=== PATIENT | male | born 1970 | race Caucasian/White ===

== ENCOUNTER 2016-06-02 08:09 | Emergency (ER) | payer MEDICAID ==
[~2016-06-02] VITALS: Ht 167.6 cm; Wt 77.1 kg
--- NOTE | 2016-06-02 08:15 | NUR ---
Patient to bed 04.
[2016-06-02 08:17] VITALS: BP 134/94
--- NOTE | 2016-06-02 08:21 | NUR ---
DR. ASHBY EVALUATING PATIENT AT BEDSIDE.
--- NOTE | 2016-06-02 08:25 | NUR ---
45 yo MALE BIB SELF FOR RIGHT SIDED LOW BACK PAIN. AWAKE AND ALERT; DENIES N/V/D; SKIN IS PINK/WARM/DRY; AAOX4 WITH EVEN AND STEADY GAIT; LUNGS CLEAR BL; HR EVEN AND REGULAR; PT DENIES ANY FEVER, CP, SOB, OR COUGH AT THIS TIME; PATIENT STATES PAIN OF 8/10 AT THIS TIME; VSS; PATIENT POSITIONED FOR COMFORT; HOB ELEVATED; BEDRAILS UP X2; BED DOWN. ER MD MADE AWARE OF PT STATUS.
[2016-06-02 08:50] VITALS: BP 127/81
--- NOTE | 2016-06-02 08:50 | NUR ---
Patient discharged with v/s stable. Written and verbal after care instructions given and explained. Patient alert, oriented and verbalized understanding of instructions. Ambulatory with steady gait. All questions addressed prior to discharge. ID band removed. Patient advised to follow up with PMD. Rx of TRAMADOL, ROBAXIN, MOTRIN given. Patient educated on indication of medication including possible reaction and side effects. Opportunity to ask questions provided and answered.
== END 2016-06-02 08:50 | disposition home or self-care (01) ==
LOC: MED 08:09
DX: S39.012A Strain of muscle, fascia and tendon of lower back, initial encounter (principal); X58.XXXA Exposure to other specified factors, initial encounter; Y93.89 Activity, other specified; Y92.89 Other specified places as the place of occurrence of the external cause; Y99.8 Other external cause status